=== PATIENT | male | born 1980 | race Caucasian/White ===

== ENCOUNTER 2020-06-06 13:12 | Emergency (ER) | payer MEDICAID ==
[~2020-06-06] VITALS: Ht 182.9 cm; Wt 102.1 kg
[2020-06-06 13:23] VITALS: BP_SYST 147
--- NOTE | 2020-06-06 13:29 | NUR ---
Patient triaged and placed in waiting room. VSS and patient appears in no acute distress at this time. Awaiting available bed, and MD notified of need for MSE.
[2020-06-06 13:59] LABS: BASOPHILS % (AUTO) 0.9 % (0.0-2.0); EOSINOPHILS # (AUTO) 0.1 K/uL (0.0-0.4); HEMATOCRIT 48.9 % (36-54); HEMOGLOBIN 16.1 g/dL (14.0-18.0); LYMPHOCYTES # (AUTO) 1.9 K/uL (1.0-5.5); LYMPHOCYTES % (AUTO) 35.2 % (20.5-51.5); MEAN CORPUSCULAR HEMOGLOBIN 28 pg (27-31); MEAN CORPUSCULAR HGB CONC 33 % (32-36); MEAN CORPUSCULAR VOLUME 85 fL (79.0-98.0); MONOCYTES # (AUTO) 0.4 K/uL (0.0-1.0); MONOCYTES % (AUTO) 8.4 % (1.7-9.3); NEUTROPHILS # (AUTO) 2.9 K/uL (1.8-7.7); NEUTROPHILS % (AUTO) 54.5 % (40.0-70.0); PLATELET COUNT (AUTO) 224 K/uL (130-430); RED BLOOD CELL COUNT(AUTO) 5.78 MIL/uL (4.2-6.2); RED CELL DISTRIBUTION WIDTH 13.4 % (9.0-15.0); WHITE BLOOD COUNT (AUTO) 5.3 K/uL (4.8-10.8)
[2020-06-06 14:14] LABS: CALCIUM 9.1 mg/dL (8.4-11.0); CREATININE 1.02 mg/dL (0.55-1.30); POTASSIUM 3.7 mmol/L (3.5-5.1)
--- NOTE | 2020-06-06 14:37 | NUR ---
Patient to [facility] for evaluation. Side rails up. Report given to DONNELL Michel.
--- NOTE | 2020-06-06 14:40 | NUR ---
Pt brought by self, A&Ox4, pt presents to ER with L shoulder pain and dizziness, also c/o rapid heart beat, skin pink and warm, cap refill <3.
--- NOTE | 2020-06-06 14:42 | NUR ---
Dr Min, L evaluating patient at bedside
[2020-06-06 15:01] VITALS: BP_SYST 142
--- NOTE | 2020-06-06 15:02 | NUR ---
Patient given written and verbal discharge instructions and verbalizes understanding. ER MD discussed with patient the results and treatment provided. Patient in stable condition. ID arm band removed. . Rx of Ibuprofen and Meclizine given. Patient educated on pain management and to follow up with PMD. Pain Scale 0/10. Opportunity for questions provided and answered. Medication side effect fact sheet provided.
== END 2020-06-06 15:01 | disposition home or self-care (01) ==
LOC: SED 13:12
DX: M25.512 Pain in left shoulder (principal); R42 Dizziness and giddiness; G47.00 Insomnia, unspecified; K21.9 Gastro-esophageal reflux disease without esophagitis
CPT/HCPCS: 36415; 70450-TC; 73030; 80048; 85025; 93005; 99285